=== PATIENT | male | born 1985 | race Hispanic/Latino ===

== ENCOUNTER 2017-05-09 04:00 | Emergency (ER) | payer OTHER ==
[2017-05-09 04:59] LABS: Basophils % (Auto) 0.6 % (0.0-1.8); Eosinophils % (Auto) 2.1 % (0.0-4.3); Hematocrit 50.1 % (35.5-45.6); Hemoglobin 17.2 gm/dl (11.8-15.2); Mean Corpuscular HGB Conc 34 % (32-34); Mean Corpuscular Hemoglobin 30 pg (28-32); Mean Corpuscular Volume 89 fl (84-94); Platelet Count 303 K/mm3 (140-440); Red Blood Count 5.66 M/mm3 (3.65-5.03); Red Cell Distribution Width 13.1 % (13.2-15.2); White Blood Count 14.5 K/mm3 (4.5-11.0)
[2017-05-09 05:10] LABS: Alanine Aminotransferase 44 units/L (7-56); Albumin 4.4 g/dL (3.9-5); Albumin/Globulin Ratio 1.3 %; Alkaline Phosphatase 66 units/L (35-129); Anion Gap 23 mmol/L; Anion Gap 24 mmol/L; BUN/Creatinine Ratio 17.77; Blood Urea Nitrogen 16 mg/dL (9-20); Calcium 9.2 mg/dL (8.4-10.2); Calcium 9.7 mg/dL (8.4-10.2); Carbon Dioxide 20 mmol/L (22-30); Carbon Dioxide 21 mmol/L (22-30); Chloride 97.1 mmol/L (98-107); Chloride 97.5 mmol/L (98-107); Glucose 102 mg/dL (75-100); Glucose 97 mg/dL (75-100); Lipase 23 units/L (13-60); Potassium 4.4 mmol/L (3.6-5.0); Potassium 4.5 mmol/L (3.6-5.0); Sodium 136 mmol/L (137-145); Sodium 138 mmol/L (137-145); Total Protein 7.9 g/dL (6.3-8.2)
[2017-05-09] MEDS ORDERED: ZOFRAN IV ONE ×2 (06:08→07:18)
[2017-05-09] MEDS ORDERED: MORPHINE IV ONE ×2 (06:08→11:32)
[2017-05-09] MEDS ORDERED: NACL 0.9% 1000 ML 1,000 ML IV ONE (06:15)
[2017-05-09] MEDS ORDERED: FLOMAX PO ONE (06:16)
[2017-05-09] MEDS ORDERED: TORADOL IV ONE (06:16)
[2017-05-09 06:52] LABS: Bilirubin,Urine NEG (Negative); Blood,Urine LG (Negative); Ketones,Urine NEG (Negative); Leukocyte Esterase,Urine NEG (Negative); Mucus,Urine 1+ /HPF; Nitrite,Urine NEG (Negative); Urobilinogen,Urine < 2.0 mg/dL (<2.0)
[2017-05-09 06:53] LABS: RBC,Urine > 182.0 /HPF (0.0-6.0)
--- NOTE | 2017-05-09 07:13 | XRay Report ---
ROUTINE CHEST, TWO VIEWS: HISTORY: Shortness of breath. The trachea, heart, mediastinal contour, lung [place] and bony thorax are unremarkable. IMPRESSION: Unremarkable chest x-ray.
[2017-05-09] MEDS ORDERED: DILAUDID IV ONE (07:18)
--- NOTE | 2017-05-09 07:27 | Emergency Department Report ---
HPI - General Chief Complaint: Abdominal Pain Time Seen by Provider: 05/09/17 07:18 - HPI HPI: 31-year-old male coming in is left flank and left flank pain starting on this morning patient had no previous history of such pain. He states that his pain is accompanied by nausea, vomiting but no urinary symptoms or diarrhea. Patient has not taking any medication at home for his symptoms. He denies any exacerbating factors. He denies any alleviating factors. He denies any recent travel, or unusual foods. He denies any sick contacts. He states the pain is currently as 10 out of 10, sharp and come and goes. MD Complaint: abdominal pain -: Gradual Location: Left flank Radiation: none Migration to: no migration Severity scale (0 -10): 10 Quality: sharp Improves With: nothing Associated Symptoms: nausea, vomiting, chills ED Past Medical Hx - Past Medical History Previous Medical History?: No - Surgical History Past Surgical History?: No - Social History Smoking Status: Never Smoker Substance Use Type: None - Medications Home Medications: Home Medications Medication Instructions Recorded Confirmed Last Taken Type Cephalexin [Keflex] 500 mg PO Q12HR #14 cap 05/09/17 Unknown Rx HYDROcodone/APAP 10-325 [[place] 1 each PO Q8HR PRN #12 tablet 05/09/17 Unknown Rx 10/325] Tamsulosin [Flomax] 0.4 mg PO QDAY #10 cap 05/09/17 Unknown Rx ED Review of Systems ROS: Stated complaint: FLANK PAIN Other details as noted in HPI Physical Exam - Physical Exam Vital Signs: Vital Signs 05/09/17 05/09/17 05/09/17 04:22 06:20 06:30 Temperature 98.2 F Pulse Rate 67 Respiratory 20 20 20 Rate Blood Pressure 156/105 Blood Pressure [Left] O2 Sat by Pulse 100 Oximetry 05/09/17 05/09/17 06:42 06:50 Temperature 97.9 F Pulse Rate 57 L Respiratory 20 18 Rate Blood Pressure Blood Pressure 152/105 [Left] O2 Sat by Pulse 100 Oximetry Physical Exam: - Physical Exam Physical Exam: - General Limitations: No Limitations General appearance: alert, in no apparent distress, obese - Head Head exam: Present: atraumatic, normocephalic - Eye Eye exam: Present: normal appearance - ENT ENT exam: Present: mucous membranes moist - Neck Neck exam: Present: normal inspection - Respiratory Respiratory exam: Present: normal lung sounds bilaterally. Absent: respiratory distress - Cardiovascular Cardiovascular Exam: Present: normal rhythm, tachycardia. Absent: systolic murmur, diastolic murmur, rubs, gallop - GI/Abdominal GI/Abdominal exam: Left flank tenderness - Extremities Exam Extremities exam: Present: normal inspection - Back Exam Back exam: Present: normal inspection - Neurological Exam Neurological exam: Present: alert, oriented X3 - Psychiatric Psychiatric exam: normal affect and mood - Skin Skin exam: Present: warm, dry, intact, normal color. Absent: rash ED Course Vital Signs 05/09/17 05/09/17 05/09/17 04:22 06:20 06:30 Temperature 98.2 F Pulse Rate 67 Respiratory 20 20 20 Rate Blood Pressure 156/105 Blood Pressure [Left] O2 Sat by Pulse 100 Oximetry 05/09/17 05/09/17 06:42 06:50 Temperature 97.9 F Pulse Rate 57 L Respiratory 20 18 Rate Blood Pressure Blood Pressure 152/105 [Left] O2 Sat by Pulse 100 Oximetry ED Medical Decision Making - Lab Data Result diagrams: 05/09/17 04:35 05/09/17 04:35 Critical care attestation.: If time is entered above; I have spent that time in minutes in the direct care of this critically ill patient, excluding procedure time. ED Disposition Clinical Impression: Kidney stone Disposition: DC-01 TO HOME OR SELFCARE Is pt being admited?: No Does the pt Need Aspirin: No Condition: Stable Instructions: Kidney Stones (ED) Prescriptions: Cephalexin [Keflex] 500 mg PO Q12HR #14 cap HYDROcodone/APAP 10-325 [[place] 10/325] 1 each PO Q8HR PRN #12 tablet PRN Reason: Pain Tamsulosin [Flomax] 0.4 mg PO QDAY #10 cap Referrals: ARCADIO SINGH MD [Staff Physician] - 3-5 Days PRIMARY CARE, [Primary Care Provider] - 3-5 Days
--- NOTE | 2017-05-09 08:26 | Cat Scan Report ---
CT SCAN OF THE ABDOMEN AND PELVIS WITH CONTRAST: HISTORY: Abdominal pain, left flank pain. TECHNIQUE: Helical CT in 1.25mm intervals following IV contrast. Sagittal and coronal reconstructions. FINDINGS: A 6 x 6 x 7 mm calculus is identified at the left ureteral pelvic junction. There is moderate pyelocaliectasis within the left kidney. Mild left perinephric stranding. No additional ureteral stones. The kidneys are normal size and contour. There appear to be a few scattered punctate calyceal stones in both kidneys. No cystic disease or mass. The bladder is unremarkable. The liver is normal in size and is without focal defect. Mild fatty infiltration throughout the liver is noted. The portal venous system and hepatic veins are patent. No gallstones or biliary dilatation are noted. The spleen and pancreas demonstrate a normal size and attenuation with no evidence of abnormal mass. The adrenal glands are normal. There is no intestinal obstruction or ascites. Normal appendix. The abdominal aorta is normal. No abnormalities are identified within the retroperitoneum or mesentery. There is no evidence of peritoneal air or fluid. There is no evidence of any abnormal masses or fluid collections within the pelvis. No adenopathy is identified. The bladder is normal. Normal heart size. The visualized lung bases are normal. No suspicious bony lesion or fracture. IMPRESSION: 6 x 6 x 7 mm calculus at the left ureteropelvic junction, moderately obstructing. Scattered punctate calyceal stones in both kidneys. Mild fatty infiltration of the liver.
[2017-05-09] MEDS ORDERED: PERCOCET 5/325 PO ONE (10:33)
[2017-05-09 11:52] VITALS: BP 132/84
== END 2017-05-09 12:04 | disposition home or self-care (01) ==
LOC: ED 04:00
DX: N20.0 Calculus of kidney (principal)
CPT/HCPCS: 36415; 71020; 74177; 80048; 80053; 81001; 82962; 83690; 84484; 85025; 93005; 93010; 96361; 96374; 96375; 96376; 99285; J1170; J1885; J2270; J2405; J7030; Q9967